=== PATIENT | female | born 1970 | race African-American/Black ===

== ENCOUNTER → 2020-02-18 | Outpatient (CLI) | payer BC, MEDICAID, OTHER ==
[2015-06-07 15:00] VITALS: BP 177/84
[~2020-02-18] MED LIST: ASPI-630 PO; ENAL10TA11 PO; METO25TA4 PO
--- NOTE | 2020-02-18 08:15 | RAD ---
Pelvic ultrasound INDICATION: Pelvic pain TECHNIQUE: Transabdominal grayscale and color Doppler imaging of the pelvis was performed FINDINGS: Uterus measures 1.9 x 7.0 x 6.5 cm. Multiple uterine leiomyoma are evident. Largest measures 2.9 x 2.5 x 2.7 cm at the dorsal fundus. The endometrium measures 0.7 cm. The right ovary measures 3.0 x 2.3 x 2.1 cm and demonstrates normal blood flow. Left ovary measures 3.9 x 2.3 x 2.4 cm and demonstrates normal blood flow. No pelvic free fluid. IMPRESSION: Myomatous uterus. Otherwise normal pelvic ultrasound. Electronically signed by: Wiley Rangel MD (02/18/2020 8:12 AM) [id number]
--- NOTE | 2020-02-21 15:16 | RAD ---
DATE: 02/18/2020 7:45 AM EXAM: MAMMO [facility] SCREENING BILATERAL HISTORY: Screening COMPARISON: August 31, 2011 and February 19, 2011 Bilateral CC and MLO views of the breasts were performed. Bilateral breast tomosynthesis was performed in CC and MLO projections. This study was interpreted with the benefit of Computerized Aided Detection (CAD). FINDINGS: Breast Density: SCATTERED The breast parenchyma shows scattered fibroglandular densities. Breast parenchyma level B Left external cardiac monitoring device noted. No suspicious masses, microcalcifications or architectural distortion is present to suggest malignancy in either breast. The visualized axillae are unremarkable. IMPRESSION: No mammographic evidence of malignancy. BI-RADS CATEGORY: 1 NEGATIVE RECOMMENDED FOLLOW-UP: 12M 12 MONTH FOLLOW-UP Annual screening mammography is recommended, unless clinically indicated sooner based on symptoms or change in physical exam. PQRS compliance statement: Patient information was entered into a reminder system with a target due date for the next mammogram. Mammography is a sensitive method for finding small breast cancers, but it does not detect them all and is not a substitute for careful clinical examination. A negative mammogram does not negate a clinically suspicious finding and should not result in delay in biopsying a clinically suspicious abnormality. "Our facility is accredited by the [employer] Mammography [employer]."
== END ==
LOC: US 06:52
PROVIDERS: ATTEND Obstetrics & Gynecology
DX: Z12.31 Encounter for screening mammogram for malignant neoplasm of breast (principal); Z01.411 Encounter for gynecological examination (general) (routine) with abnormal findings; R10.2 Pelvic and perineal pain
CPT/HCPCS: 76856; 77063; 77067

== ENCOUNTER → 2020-10-14 | Outpatient (CLI) | payer BC ==
[2015-06-07 15:00] VITALS: BP 177/84
--- NOTE | 2020-10-15 11:27 | SLEEP ---
DATE OF STUDY: 10/14/2020 HOME SLEEP STUDY ATTENDING PHYSICIAN: Jadyn Garrett MD. The patient is a 49-year-old who weighs 200 pounds with a BMI of 32.3. The patient's Mather score was not available. The patient underwent a home sleep study performed by [facility]. Total recording time was 443 minutes. During the night study, the patient had 7 central apneas, no obstructive apneas, 3 mixed apneas and 126 hypopneas. The patient's AHI was 31 per hour. Nocturnal oximetry study revealed a mean oxygen saturation of 93% with the lowest of 80%. Twenty-three minutes were spent with oxygen saturation less than 90% and 5 minutes with saturation less than 85%. IMPRESSION: 1. Severe obstructive sleep apnea at an AHI of 31 per hour. 2. Nocturnal hypoxia secondary to obstructive sleep apnea. RECOMMENDATIONS: 1. The patient would benefit from return to the sleep lab for in-lab CPAP titration study. Alternate treatment option would include home auto-CPAP. 2. Once the patient is optimally treated with CPAP, then follow up in 4-6 weeks to assess compliance and to document clinical improvement. 3. Weight loss is advised. 4. Avoid [employer] depressants. 5. Cautioned regarding driving until symptoms of sleep apnea resolve with above recommendations. MELL/ANDI DR: Bia TID: [id number] CC: JADYN GARRETT MD
== END ==
LOC: RT 09:01
PROVIDERS: ATTEND Family Medicine
DX: G47.33 Obstructive sleep apnea (adult) (pediatric) (principal); G47.34 Idiopathic sleep related nonobstructive alveolar hypoventilation
CPT/HCPCS: G0399

== ENCOUNTER → 2020-12-16 | Outpatient (CLI) | payer BC ==
[2015-06-07 15:00] VITALS: BP 177/84
--- NOTE | 2020-12-17 09:25 | SLEEP ---
DATE OF STUDY: 12/16/2020 SLEEP STUDY ATTENDING PHYSICIAN: Dr. Garrett. The patient is a 50-year-old who weighs 197 pounds with a BMI of 32. The patient underwent split night study performed at [facility]. During the night study, the patient spent 474 minutes in bed and slept for 313 minutes with a sleep efficiency of 66%. Sleep latency was 11 minutes, REM latency 213 minutes. Sleep architecture showed increased stage I and stage II sleep, absent slow wave and normal REM sleep. During the initial diagnostic portion of the study, the patient slept for 202 minutes. During that time, there was 1 obstructive apnea, 55 hypopneas, no mixed and no central apneas. The patient's AHI was 17 per hour, supine AHI 17 per hour, REM AHI of 70 per hour. EKG monitoring revealed an average heart rate of 66 beats per minute. No sustained arrhythmias observed. Nocturnal oximetry study revealed a lowest oxygen saturation of 81%. 7% of time oxygen saturation remained between 80 and 89%. No PLMs were seen. The patient met the criteria for CPAP initiation. She had a brief trial of CPAP, but she could not tolerate it. The patient was switched to BiPAP. At the final pressure of BiPAP of 10/6 patient slept for 54 minutes. The patient had supine as well as REM sleep. The patient's AHI was reduced to 4 per hour. Oxygen saturation remained above 88%. The patient used medium sized nasal pillows. IMPRESSION: 1. Moderate obstructive sleep apnea with worsening during REM sleep. Total AHI 17 per hour with a REM AHI of 70 per hour. 2. Nocturnal hypoxia secondary to obstructive sleep apnea, but resolved with BiPAP. 3. No significant PLMs. 4. Abnormal EKG with PVCs. RECOMMENDATIONS: 1. BiPAP at a pressure of 10/6 completely eliminated the patient's sleep apnea, should be used on a nightly basis. 2. Follow up in 4-6 weeks to assess compliance and to document clinical improvement. 3. Weight loss is advised. 4. Avoid [employer] depressants. 5. Cautioned regarding driving until symptoms of sleep apnea resolve with the use of BiPAP. NICOLASA DR: Bia TID: [id number] CC: MALATHI GARRETT MD
== END ==
LOC: SLPLAB 20:32
PROVIDERS: ATTEND Family Medicine
DX: G47.33 Obstructive sleep apnea (adult) (pediatric) (principal)
CPT/HCPCS: 95810

== ENCOUNTER → 2021-07-03 | Outpatient (CLI) | payer BC ==
[2015-06-07 15:00] VITALS: BP 177/84
--- NOTE | 2021-07-06 09:21 | KCIC ---
Bilateral digital screening mammograms with 3-D tomosynthesis: Reason for examination: Routine screening. Comparison is made to previous studies dated 02/18/2020 and 02/19/2011. Bilateral mammograms in CC and oblique projections were obtained with 2-D imaging and 3-D tomosynthes is imaging on a Siemens Inspiration unit and reviewed on the workstation. Interpretation was made gina willis the benefit of CAD. A loop recorder device remains present in the left breast medially. The skin and nipples show no abno rmalities. No abnormal axillary lymph nodes are seen. The breast parenchyma shows scattered fatty and fibroglandular density. (Breast density: Category B.) There are no dominant masses, suspicious calci fications or architectural distortion. There appear to be calcifications posterior inferiorly on the skin surface. Impression: No evidence of malignancy. Recommend routine screening. BI-RAD Category 1: Negative. "Our facility is accredited by the [employer] Mammography [employer]." This patient's information has been entered into a reminder system for the patient to be notified wit h the results of her examination and a target date for the next mammogram. Electronically signed by: Imani Veliz MD (07/06/2021 9:19 AM) [id number]
== END ==
LOC: KCIC MAMMO 15:55
PROVIDERS: ATTEND Family Medicine
DX: Z12.31 Encounter for screening mammogram for malignant neoplasm of breast (principal)
CPT/HCPCS: 77063; 77067